=== PATIENT | female | born 1975 | race American Indian/Alaskan Native ===

== ENCOUNTER 2018-01-26 23:51 | Emergency (ER) | payer SELFPAY ==
[2018-01-27 01:02] VITALS: BP 148/88
[2018-01-27 04:03] LABS: Bilirubin,Urine NEG (Negative); Blood,Urine NEG (Negative); Color,Urine Yellow (Yellow); Mucus,Urine FEW /HPF; Protein,Urine <15 mg/dL mg/dL (Negative); Urobilinogen,Urine < 2.0 mg/dL (<2.0)
[2018-01-27 04:04] LABS: HCG Qualitative,Urine Negative (Negative)
[2018-01-27] MEDS ORDERED: TORADOL IM ONE (04:26)
--- NOTE | 2018-01-27 04:31 | Emergency Department Report ---
ED Back Pain/Injury HPI - General Chief Complaint: Back Pain/Injury Stated Complaint: RIGHT FLANK AND BACK PAIN Time Seen by Provider: 01/27/18 04:18 Source: patient Limitations: No Limitations - History of Present Illness Initial Comments: 42-year-old female comes in complaint of back pain a few on the right side 10 out of 10. Patient reports that the back pain isn't gone on for about a week. 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 Patient denies any dysuria. She reports that the pain feels like it is pulling in her back and its positional she reports that the pain is sharp intermittent. That makes it better is rest. She denies any recent traumas or falls. She reports she's been taking ibuprofen 600 mg last dose was Sunday morning. He reports has a past medical history of asthma currently takes no medications on a daily basis has no known drug allergies. MD Complaint: back pain -: week(s) (1) Similar Symptoms Previously: No Place: work (makes the pain worse) Radiation: none Severity scale (0 -10): 10 Quality: sharp Consistency: intermittent (additional) Improves With: other (resting) Worsens With: movement (lifting) Context: while lifting, turning/twisting, bending Associated Symptoms: denies other symptoms Treatments Prior to Arrival: NSAIDS (ibuprofen 600 mg) - Related Data Previous Rx's Medication Instructions Recorded Last Taken Type Naproxen 500 mg PO BID #20 tablet 01/27/18 Unknown Rx methOCARBAMOL [Robaxin TAB] 500 mg PO BID #20 tab 01/27/18 Unknown Rx Allergies Allergy/AdvReac Type Severity Reaction Status Date / Time No Known Allergies Allergy Unverified 01/27/18 00:54 ED Review of Systems ROS: Stated complaint: RIGHT FLANK AND BACK PAIN Other details as noted in HPI Constitutional: denies: chills, fever Eyes: denies: eye pain, eye discharge, vision change ENT: denies: ear pain, throat pain Respiratory: denies: cough, shortness of breath, wheezing Cardiovascular: denies: chest pain, palpitations Endocrine: no symptoms reported Gastrointestinal: denies: abdominal pain, nausea, diarrhea Genitourinary: denies: urgency, dysuria, discharge Musculoskeletal: back pain (worse on the right side lower back) Skin: denies: rash, lesions Neurological: denies: headache, weakness, paresthesias Psychiatric: denies: anxiety, depression Hematological/Lymphatic: denies: easy bleeding, easy bruising ED Past Medical Hx - Past Medical History Previous Medical History?: Yes Hx Asthma: Yes (ALLERGY INDUCED BRONCHITIS) Additional medical history: MRSA UNDER RIGHT ARM - Surgical History Past Surgical History?: No - Social History Smoking Status: Current Every Day Smoker - Medications Home Medications: Home Medications Medication Instructions Recorded Confirmed Last Taken Type Naproxen 500 mg PO BID #20 tablet 01/27/18 Unknown Rx methOCARBAMOL [Robaxin TAB] 500 mg PO BID #20 tab 01/27/18 Unknown Rx ED Physical Exam - General Limitations: No Limitations General appearance: alert, in no apparent distress - Head Head exam: Present: atraumatic, normocephalic - Eye Eye exam: Present: normal appearance - ENT ENT exam: Present: mucous membranes moist - Neck Neck exam: Present: normal inspection - Respiratory Respiratory exam: Present: normal lung sounds bilaterally. Absent: respiratory distress - Cardiovascular Cardiovascular Exam: Present: regular rate, normal rhythm. Absent: systolic murmur, diastolic murmur, rubs, gallop - GI/Abdominal GI/Abdominal exam: Present: soft, normal bowel sounds - Extremities Exam Extremities exam: Present: normal inspection, full ROM - Back Exam Back exam: Present: normal inspection, full ROM, muscle spasm, paraspinal tenderness (right side) - Neurological Exam Neurological exam: Present: alert, oriented X3 - Psychiatric Psychiatric exam: Present: normal affect, normal mood - Skin Skin exam: Present: warm, dry, intact, normal color. Absent: rash ED Course Vital Signs 01/27/18 00:57 Temperature 98.1 F Pulse Rate 78 Respiratory 20 Rate Blood Pressure 148/88 O2 Sat by Pulse 100 Oximetry ED Medical Decision Making - Medical Decision Making Patient's been evaluated for this provider fast track. Discussed patient with you for Toradol injection. Her urinalysis was negative no blood no WBCs. Discussed the patient I will discharge her on naproxen and Robaxin. Patient to follow up with [facility]. Patient verbalized understanding. Critical care attestation.: If time is entered above; I have spent that time in minutes in the direct care of this critically ill patient, excluding procedure time. ED Disposition Clinical Impression: Back pain Qualifiers: Back pain location: low back pain Chronicity: acute Back pain laterality: right Sciatica presence: without sciatica Qualified Code(s): M54.5 - Low back pain Disposition: DC-01 TO HOME OR SELFCARE Is pt being admited?: No Does the pt Need Aspirin: No Condition: Stable Instructions: Acute Low Back Pain (ED) Additional Instructions: Please take pain medication and muscle relaxant as prescribed. Please rest your back. Please try to avoid lifting heavy objects. Symptoms persist or gets worse please follow-up with your primary care provider. I have listed [facility] below. Prescriptions: methOCARBAMOL [Robaxin TAB] 500 mg PO BID #20 tab Naproxen 500 mg PO BID #20 tablet Referrals: PRIMARY CARE, [Primary Care Provider] - 3-5 Days [facility] [Provider Group] - 3-5 Days Forms: Work/School Release Form(ED)
== END 2018-01-27 04:55 | disposition home or self-care (01) ==
LOC: ED 23:51
DX: M54.9 Dorsalgia, unspecified (principal); F17.200 Nicotine dependence, unspecified, uncomplicated
CPT/HCPCS: 81001; 81025; 96372; 99282; J1885